=== PATIENT | male | born 1940 | race Caucasian/White ===

== ENCOUNTER 2024-10-29 15:19 | Outpatient (CLI) | payer MEDICARE ==
[~2024-10-29] VITALS: Ht 180.3 cm; Wt 97.5 kg
[2024-10-29] MEDS: albuterol 2.5 MG/3 ML nebule NEB ONE (16:37)
[2024-10-29 16:40] VITALS: PULSE 80; RESP 15; O2SAT 94
[2024-10-29 16:52] VITALS: PULSE 79; RESP 16
--- NOTE | 2024-11-01 14:19 | PROCEDURE NOTE - Respiratory ---
Procedure Note-Respiratory Providers to CC Copies To 1: CORNELIO MEDINA MD Procedure Name: This is a spirometry study dated October 29, 2024. The spirometry study was performed both before and after inhaled bronchodilator. Spirometry measurements: There is substantial reduction in both the forced vital capacity and the FEV1. The FEV1 ratio is also reduced. All of the measured flow rates show significant reduction. After bronchodilator was administered, some of the flow rates show minimal improvement. Conclusion: This study is abnormal. There is evidence for moderate to severe obstructive ventilatory defect. The patient improves only marginally with inhaled bronchodilator. 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 Regular daily use of inhaled bronchodilator may prove to be useful for this patient. We have no previous studies for comparison. DIANNE ALFORD MD Nov 01, 2024 14:19
== END 2024-10-29 23:59 | disposition home or self-care (01) ==
LOC: RT 15:19
PROVIDERS: ATTEND Family Medicine
DX: R06.02 Shortness of breath (principal)
CPT/HCPCS: 94060; 94760; A4565